=== PATIENT | female | born 1965 | race Caucasian/White ===

== ENCOUNTER 2025-06-09 18:36 | Emergency (ER) | payer OTHER ==
[~2025-06-09] VITALS: Ht 185.4 cm; Wt 107.7 kg
[~2025-06-09 18:36] MED LIST: FLAGYL500 MG PO; PERCOCET 5-3251 EACH PO; ZOFRAN4 MG PO
[2025-06-09 21:22] LABS: BASOPHILS 0.6 % (0.1-1.2); EOSINOPHILS 1.2 % (0.7-5.8); LYMPHOCYTES 17.7 % (19.3-51.7); MCH 30.1 PG (25.6-32.2); MCHC 32.7 g/dL (32.2-35.5); MCV 91.9 fL (79.4-94.8); MONOCYTES 5.0 % (4.7-12.5); NEUTROPHILS 75.2 % (34.0-71.1); RBC 4.59 M/uL (3.93-5.22)
[2025-06-09] MEDS ORDERED: CLINDAMYCIN PHOSPHATE/D5W 900 MG/50 ML PIGGYBACK IV ONE (21:30)
[2025-06-09 21:32] LABS: ALT (SGPT) 28.0 U/L (14-59); AST (SGOT) 16.0 U/L (15-37); GLOMERULAR FILTRATION RATE,EST 101.0 mL/min (>60); PROTEIN, TOTAL 7.5 g/dL (6.4-8.2); UREA NITROGEN 9.0 mg/dL (7-18)
[2025-06-09] MEDS ORDERED: DEXAMETHASONE SOD PHOS 10 MG/ML VIAL IV ONE (22:00)
[2025-06-09] MEDS ORDERED: DEXAMETHASONE4 MG PO (22:05)
[2025-06-09] MEDS ORDERED: CLEOCIN HCL300 MG PO (22:05)
[2025-06-09] MEDS ORDERED: HYDROCODON-ACE1 EA10 PO (22:05)
[2025-06-09] MEDS ORDERED: HYDROCODONE BIT/ACETAMINOPHEN 5/325 MG 1 TAB HOME.PACK PO PRN (22:15)
[2025-06-09] MEDS ORDERED: NICOTINE 14 MG/24 HR 1 EA TDSY TD ONE (23:45)
[2025-06-10 00:30] VITALS: BP 136/74
== END 2025-06-10 00:33 | disposition short-term general hospital (02) ==
LOC: ED 18:36
PROVIDERS: Emergency Medicine
DX: J36 Peritonsillar abscess (principal); F17.200 Nicotine dependence, unspecified, uncomplicated; Z88.1 Allergy status to other antibiotic agents; Z88.0 Allergy status to penicillin; Z79.899 Other long term (current) drug therapy
CPT/HCPCS: 36415; 70491; 80053; 85025; 96365; 96375; 99284-25; A9270; J1100; J3490; Q9967